=== PATIENT | male | born 1960 | race Caucasian/White ===

== ENCOUNTER → 2016-12-04 | Outpatient (CLI) | payer MEDICARE, OTHER ==
[2016-12-04 12:57] LABS: Hemoglobin A1C 7.9 % (4.2-6.1)
== END | disposition home or self-care (01) ==
LOC: LABWHC1 08:29
PROVIDERS: ATTEND Family Medicine
DX: R73.01 Impaired fasting glucose (principal)
CPT/HCPCS: 36415; 82947; 83036

== ENCOUNTER 2017-03-19 16:47 | Emergency (ER) | payer MEDICARE, OTHER ==
[2017-03-19 16:59] VITALS: RESP 18
[2017-03-19] MEDS ORDERED: IPRATROPIUM-ALBUTEROL 3 ML NEB INHALATION STA (17:23)
--- NOTE | 2017-03-19 17:28 | ED ---
URI HPI <SantosPop - Last Filed: 03/19/17 20:04> - General Source: patient, RN notes reviewed Mode of arrival: ambulatory Limitations: no limitations <Kaylin Becker - Last Filed: 03/20/17 02:07> - General Chief Complaint: Upper Respiratory Infection Stated Complaint: Cough,Congestion,Tired Time Seen by Provider: 03/19/17 17:09 - History of Present Illness Initial Comments: Patient is a 56-year-old male presents to the emergency room for evaluation of cough and congestion. Patient states symptoms began on . Patient states it started with a light cough and stuffy nose. Patient states he also has had all over body aches and has been unable to get out of bed from until Saturday. Patient states he is still continuing to have a productive cough. Patient smokes a half pack per day. Patient states his girlfriend was recently diagnosed with pneumonia. Patient states he did receive his influenza vaccine this year. Patient denies any known fevers. Patient denies headache or dizziness. Patient does state he is also feeling chest pressure and shortness of breath. Patient states he's having throat pain every time he coughs. Patient denies ear pain. Patient denies nausea and vomiting. Patient denies abdominal pain. (Kaylin Becker) - Related Data Home Medications Medication Instructions Recorded Confirmed Aspirin 325 mg PO DAILY 02/15/16 03/19/17 Atorvastatin [Lipitor] 80 mg PO HS 02/15/16 03/19/17 HYDROcodone/APAP 10-325MG [[place] 1 tab PO Q4HR PRN 02/15/16 03/19/17 10-325] Metoprolol Tartrate [Lopressor] 25 mg PO BID 02/15/16 03/19/17 Nitroglycerin Sl Tabs [Nitrostat] 0.4 mg SUBLINGUAL Q5M PRN 02/15/16 03/19/17 Omeprazole [PriLOSEC] 20 mg PO AC-BID 02/15/16 03/19/17 Lisinopril [Zestril] 40 mg PO DAILY 03/19/17 03/19/17 Previous Rx's Medication Instructions Recorded Levofloxacin [Levaquin] 500 mg PO DAILY #7 tab 03/19/17 Allergies Allergy/AdvReac Type Severity Reaction Status Date / Time Penicillins Allergy Rash/Hives Verified 03/19/17 17:30 Review of Systems ROS Other: All systems not noted in ROS Statement are negative. <Pop Graham - Last Filed: 03/19/17 20:04> ROS Other: All systems not noted in ROS Statement are negative. <Kaylin Becker - Last Filed: 03/20/17 02:07> ROS Statement: Those systems with pertinent positive or pertinent negative responses have been documented in the HPI. Past Medical History Past Medical History: Myocardial Infarction ([place]) History of Any Multi-Drug Resistant Organisms: None Reported Past Surgical History: Back Surgery, Heart Catheterization Additional Past Surgical History / Comment(s): Carpal Tunnel, Ulnar Nerve Past Psychological History: No Psychological Hx Reported Smoking Status: Current every day smoker Past Alcohol Use History: Rare Past Drug Use History: Marijuana <Kaylin Becker - Last Filed: 03/20/17 02:07> General Exam <Pop Graham - Last Filed: 03/19/17 20:04> Limitations: no limitations General appearance: alert, in no apparent distress Head exam: Present: atraumatic, normocephalic, normal inspection Eye exam: Present: normal appearance ENT exam: Present: normal exam, normal oropharynx, mucous membranes moist, TM's normal bilaterally, normal external ear exam Neck exam: Present: normal inspection, full ROM Respiratory exam: Present: normal lung sounds bilaterally. Absent: respiratory distress Cardiovascular Exam: Present: regular rate, normal rhythm, normal heart sounds Extremities exam: Present: normal inspection Back exam: Present: normal inspection Neurological exam: Present: alert, oriented X3, CN II-XII intact, normal gait Psychiatric exam: Present: normal affect, normal mood Skin exam: Present: warm, dry, intact, normal color. Absent: rash <Kaylin Becker - Last Filed: 03/20/17 02:07> - General Exam Comments Initial Comments: Sitting in exam room, in no acute distress. (Kaylin Becker) Medical Decision Making - Lab Data Result diagrams: 03/19/17 17:43 03/19/17 17:43 <Pop Graham - Last Filed: 03/19/17 20:04> - Lab Data Result diagrams: 03/19/17 17:43 03/19/17 17:43 - Radiology Data Radiology results: report reviewed, image reviewed <Kaylin Becker - Last Filed: 03/20/17 02:07> - Medical Decision Making The patient's significant other has pneumonia last week. He's developed productive cough and low-grade fever prior to coming to emergency room. It is somewhat productive. #3.3 chest x-rays negative. He is a heavy smoker we discussed bronchitis. The patient has no rashes no difficulty urinating. No sinus pain or pressures. Lungs are clear to auscultation except for coughing. At this time the patient be placed on Levaquin for 8 days 500 mg per day and follow-up with family physician stop smoking. Take Tylenol or ibuprofen for pain and/or fever. Return emergency room as needed. Dr. Graham (Pop Graham) - Lab Data Lab Results 03/19/17 03/19/17 03/19/17 Range/Units 17:15 17:43 17:43 WBC 3.5 L (3.8-10.6) k/uL RBC 4.78 (4.30-5.90) m/uL Hgb 13.9 (13.0-17.5) gm/dL Hct 39.5 (39.0-53.0) % MCV 82.6 (80.0-100.0) fL MCH 29.0 (25.0-35.0) pg MCHC 35.1 (31.0-37.0) g/dL RDW 13.8 (11.5-15.5) % Plt Count 125 L (150-450) k/uL Neutrophils % 47 % Lymphocytes % 42 % Monocytes % 6 % Eosinophils % 1 % Basophils % 1 % Neutrophils # 1.6 (1.3-7.7) k/uL Lymphocytes # 1.5 (1.0-4.8) k/uL Monocytes # 0.2 (0-1.0) k/uL Eosinophils # 0.1 (0-0.7) k/uL Basophils # 0.0 (0-0.2) k/uL PT (9.0-12.0) sec INR (<1.1) APTT (22.0-30.0) sec D-Dimer (<0.60) mg/L FEU Sodium (137-145) mmol/L Potassium (3.5-5.1) mmol/L Chloride (98-107) mmol/L Carbon Dioxide (22-30) mmol/L Anion Gap mmol/L BUN (9-20) mg/dL Creatinine (0.66-1.25) mg/dL Est GFR (MDRD) Af Amer (>60 ml/min/1.73 sqM) Est GFR (MDRD) Non-Af (>60 ml/min/1.73 sqM) Glucose (74-99) mg/dL Plasma Lactic Acid Lc (0.7-2.0) mmol/L Calcium (8.4-10.2) mg/dL Total Bilirubin (0.2-1.3) mg/dL AST (17-59) U/L ALT (21-72) U/L Alkaline Phosphatase (38-126) U/L Total Creatine Kinase 192 H (55-170) U/L CK-MB (CK-2) 2.1 (0.0-2.4) ng/mL CK-MB (CK-2) Rel Index 1.1 Troponin I <0.012 (0.000-0.034) ng/mL Total Protein (6.3-8.2) g/dL Albumin (3.5-5.0) g/dL Influenza Type A RNA Not Detected (Not Detectd) Influenza Type B (PCR) Not Detected (Not Detectd) 03/19/17 03/19/17 03/19/17 Range/Units 17:43 17:43 17:43 WBC (3.8-10.6) k/uL RBC (4.30-5.90) m/uL Hgb (13.0-17.5) gm/dL Hct (39.0-53.0) % MCV (80.0-100.0) fL MCH (25.0-35.0) pg MCHC (31.0-37.0) g/dL RDW (11.5-15.5) % Plt Count (150-450) k/uL Neutrophils % % Lymphocytes % % Monocytes % % Eosinophils % % Basophils % % Neutrophils # (1.3-7.7) k/uL Lymphocytes # (1.0-4.8) k/uL Monocytes # (0-1.0) k/uL Eosinophils # (0-0.7) k/uL Basophils # (0-0.2) k/uL PT 9.9 (9.0-12.0) sec INR 1.0 (<1.1) APTT 27.4 (22.0-30.0) sec D-Dimer 0.40 (<0.60) mg/L FEU Sodium 132 L (137-145) mmol/L Potassium 4.1 (3.5-5.1) mmol/L Chloride 99 (98-107) mmol/L Carbon Dioxide 22 (22-30) mmol/L Anion Gap 11 mmol/L BUN 15 (9-20) mg/dL Creatinine 0.81 (0.66-1.25) mg/dL Est GFR (MDRD) Af Amer >60 (>60 ml/min/1.73 sqM) Est GFR (MDRD) Non-Af >60 (>60 ml/min/1.73 sqM) Glucose 107 H (74-99) mg/dL Plasma Lactic Acid Lc 1.0 (0.7-2.0) mmol/L Calcium 8.8 (8.4-10.2) mg/dL Total Bilirubin 0.6 (0.2-1.3) mg/dL AST 40 (17-59) U/L ALT 50 (21-72) U/L Alkaline Phosphatase 61 (38-126) U/L Total Creatine Kinase (55-170) U/L CK-MB (CK-2) (0.0-2.4) ng/mL CK-MB (CK-2) Rel Index Troponin I (0.000-0.034) ng/mL Total Protein 6.6 (6.3-8.2) g/dL Albumin 4.1 (3.5-5.0) g/dL Influenza Type A RNA (Not Detectd) Influenza Type B (PCR) (Not Detectd) 03/20/17 02:06 Normal sinus rhythm, ventricular rate 82 bpm, DE interval 170 ms, QRS duration 86 ms, QT/QTC 388/453 ms (Kaylin Becker) Disposition <Pop Graham - Last Filed: 03/19/17 20:04> Time of Disposition: 19:28 <Kaylin Becker - Last Filed: 03/20/17 02:07> Clinical Impression: Bronchitis Disposition: HOME SELF-CARE Condition: Good Instructions: Acute Bronchitis (ED), How to Stop Smoking (ED) Additional Instructions: Take antibiotics as directed. Alternate Tylenol and Motrin for fever. Refrain from smoking. Please follow up with primary care provider in 24-48 hours for reevaluation. If any new symptom arises or symptoms worsen, return to ER as soon as possible. Prescriptions: Levofloxacin [Levaquin] 500 mg PO DAILY #7 tab Referrals: Nonstaff,Physician [Primary Care Provider] - 1-2 days
[2017-03-19] MEDS ORDERED: ACETAMINOPHEN TAB 500 MG TAB PO STA (18:02)
[2017-03-19 18:04] LABS: Basophils % (A) 1 %; CH 29.8; CHCM 36.2; Eosinophils # (A) 0.1 k/uL (0-0.7); Eosinophils % (A) 1 %; HCT 39.5 % (39.0-53.0); HDW 2.97; HGB 13.9 gm/dL (13.0-17.5); Luc # (Auto) 0.12; Luc % (Auto) 3; Lymphocytes # (A) 1.5 k/uL (1.0-4.8); Lymphocytes % (A) 42 %; MCHC 35.1 g/dL (31.0-37.0); MCV 82.6 fL (80.0-100.0); Mean Platelet Volume 7.5; Monocytes # (A) 0.2 k/uL (0-1.0); Monocytes % (A) 6 %; Neutrophils # (A) 1.6 k/uL (1.3-7.7); Neutrophils % (A) 47 %; RBC 4.78 m/uL (4.30-5.90); RDW 13.8 % (11.5-15.5); WBC 3.5 k/uL (3.8-10.6); WBC (Perox) 3.59
[2017-03-19 18:10] LABS: ALT 50 U/L (21-72); AST 40 U/L (17-59); Alkaline Phosphatase 61 U/L (38-126); Anion Gap 11 mmol/L; Blood Urea Nitrogen 15 mg/dL (9-20); Calcium 8.8 mg/dL (8.4-10.2); Carbon Dioxide 22 mmol/L (22-30); Chloride 99 mmol/L (98-107); Glucose 107 mg/dL (74-99); Non-African American GFR(MDRD) >60 (>60 ml/min/1.73 sqM); Potassium 4.1 mmol/L (3.5-5.1); Sodium 132 mmol/L (137-145); Total Bilirubin 0.6 mg/dL (0.2-1.3); Total Protein 6.6 g/dL (6.3-8.2)
--- NOTE | 2017-03-19 18:10 | XR ---
EXAMINATION TYPE: XR chest 2V DATE OF EXAM: 03/19/2017 5:53 PM COMPARISON: 06/26/2013 HISTORY: Cough and congestion TECHNIQUE: Frontal and lateral views of the chest are obtained. FINDINGS: There is no heart failure nor confluent pneumonic infiltrate. Heart is normal. There are n o hilar masses. Bony thorax appears intact. IMPRESSION: No active cardiopulmonary disease. No change.
[2017-03-19 18:15] LABS: Partial Thromboplastin Time 27.4 sec (22.0-30.0); Prothrombin Time 9.9 sec (9.0-12.0)
[2017-03-19 18:23] LABS: Creatine Kinase 192 U/L (55-170)
[2017-03-19 18:36] LABS: Creatine Kinase MB 2.1 ng/mL (0.0-2.4); Troponin I <0.012 ng/mL (0.000-0.034)
[2017-03-19] MEDS ORDERED: IBUPROFEN 600 MG TAB PO STA (19:27)
[2017-03-19 20:16] VITALS: BP 145/68; PULSE 78; TEMP 97.5
== END 2017-03-19 20:05 | disposition home or self-care (01) ==
LOC: EC 16:47
DX: J40 Bronchitis, not specified as acute or chronic (principal); I25.2 Old myocardial infarction; F17.200 Nicotine dependence, unspecified, uncomplicated; Z79.82 Long term (current) use of aspirin; Z79.899 Other long term (current) drug therapy; Z88.0 Allergy status to penicillin
CPT/HCPCS: 36415; 71020; 80053; 82550; 82553; 83605; 84484; 85025; 85379; 85610; 85730; 87040; 87502; 93005; 94640; 99284

== ENCOUNTER 2017-03-27 12:16 | Emergency (ER) | payer MEDICARE, OTHER ==
[2017-03-27 12:20] VITALS: BP 135/69; PULSE 69; RESP 18; TEMP 98.3
--- NOTE | 2017-03-27 12:39 | ED ---
URI HPI - General Chief Complaint: Upper Respiratory Infection Stated Complaint: Cough Time Seen by Provider: 03/27/17 12:21 Source: patient, RN notes reviewed, old records reviewed Mode of arrival: ambulatory Limitations: no limitations - History of Present Illness Initial Comments: Patient reaching plan will comply. Return parameters were discussed. Patient is a 56-year-old male with chief complaint of increased cough for the past day and half. Patient reports he was placed on Levaquin [place] only one week ago. One day after antibiotic is certainly have the cough began. Patient denies any fever or chills or respiratory congestion. He denies any chest pain. He states that he is short of breath when he is coughing a lot. Patient states he is a heavy smoker. He does not intend to quit.Patient's chest x-ray shows mild atelectasis. No evidence of infiltrate. Given patient recently completed antibiotics but no steroids and he has assumed started on steroids for COPD exacerbation. Patient be started on 50 mg for 7 days. Given Solu-Medrol here. Patient will be written for cough syrup as well as albuterol inhaler. Encourage cessation of smoking. Patient advised to follow up with primary care provider as soon as possible. - Related Data Home Medications Medication Instructions Recorded Confirmed Aspirin 325 mg PO DAILY 02/15/16 03/19/17 Atorvastatin [Lipitor] 80 mg PO HS 02/15/16 03/19/17 HYDROcodone/APAP 10-325MG [[place] 1 tab PO Q4HR PRN 02/15/16 03/19/17 10-325] Metoprolol Tartrate [Lopressor] 25 mg PO BID 02/15/16 03/19/17 Nitroglycerin Sl Tabs [Nitrostat] 0.4 mg SUBLINGUAL Q5M PRN 02/15/16 03/19/17 Omeprazole [PriLOSEC] 20 mg PO AC-BID 02/15/16 03/19/17 Lisinopril [Zestril] 40 mg PO DAILY 03/19/17 03/19/17 Previous Rx's Medication Instructions Recorded Levofloxacin [Levaquin] 500 mg PO DAILY #7 tab 03/19/17 Albuterol Inhaler [Ventolin Hfa 1 - 2 puff INHALATION Q6HR PRN #1 03/27/17 Inhaler] inhaler Promethazine/Dextromethorphan 5 ml PO TID #120 ml 03/27/17 [Phenergan DM Syrup] predniSONE 50 mg PO DAILY #7 tab 03/27/17 Allergies Allergy/AdvReac Type Severity Reaction Status Date / Time Penicillins Allergy Rash/Hives Verified 03/27/17 12:20 Review of Systems ROS Statement: Those systems with pertinent positive or pertinent negative responses have been documented in the HPI. ROS Other: All systems not noted in ROS Statement are negative. Past Medical History Past Medical History: Myocardial Infarction ([place]) History of Any Multi-Drug Resistant Organisms: None Reported Past Surgical History: Back Surgery, Heart Catheterization Additional Past Surgical History / Comment(s): Carpal Tunnel, Ulnar Nerve Past Psychological History: No Psychological Hx Reported Smoking Status: Current every day smoker Past Alcohol Use History: Rare Past Drug Use History: Marijuana General Exam - General Exam Comments Initial Comments: 56-year-old male. Patient is on appear to be in any acute distress. Limitations: no limitations General appearance: alert, in no apparent distress Head exam: Present: atraumatic, normocephalic, normal inspection Eye exam: Present: normal appearance, PERRL, EOMI. Absent: scleral icterus, conjunctival injection, periorbital swelling ENT exam: Present: normal exam, mucous membranes moist Neck exam: Present: normal inspection. Absent: tenderness, meningismus, lymphadenopathy Respiratory exam: Present: normal lung sounds bilaterally. Absent: respiratory distress, wheezes, rales, rhonchi, stridor Cardiovascular Exam: Present: regular rate, normal rhythm, normal heart sounds. Absent: systolic murmur, diastolic murmur, rubs, gallop, clicks GI/Abdominal exam: Present: soft, normal bowel sounds. Absent: distended, tenderness, guarding, rebound, rigid Extremities exam: Present: normal inspection Back exam: Present: normal inspection Neurological exam: Present: alert, oriented X3, CN II-XII intact Psychiatric exam: Present: normal affect Skin exam: Present: warm, dry, intact, normal color. Absent: rash Course Vital Signs 03/27/17 12:18 Temperature 98.3 F Pulse Rate 69 Respiratory 18 Rate Blood Pressure 135/69 O2 Sat by Pulse 96 Oximetry Medical Decision Making - Radiology Data Radiology results: report reviewed Right perihilar patchy subsegmental consolidation. Atelectasis versus infiltrate. Follow-up for resolution. Hyperinflation suggest COPD. Degenerative spine changes noted. Surgical change noted involving the lumbar spine. Disposition Clinical Impression: COPD exacerbation Disposition: HOME SELF-CARE Condition: Good Instructions: COPD (Chronic Obstructive Pulmonary Disease) (ED) Additional Instructions: Patient advised to stop smoking. Follow-up with primary care provider as soon as possible reports to smoking cessation as well as cough. Prescriptions: Albuterol Inhaler [Ventolin Hfa Inhaler] 1 - 2 puff INHALATION Q6HR PRN #1 inhaler PRN Reason: Shortness Of Breath Promethazine/Dextromethorphan [Phenergan DM Syrup] 5 ml PO TID #120 ml predniSONE 50 mg PO DAILY #7 tab Referrals: Narayan Bill DO [Primary Care Provider] - 1-2 days Time of Disposition: 12:59
--- NOTE | 2017-03-27 12:51 | XR ---
EXAMINATION TYPE: XR chest 2V DATE OF EXAM: 03/27/2017 12:46 PM COMPARISON: 03/19/2017 TECHNIQUE: PA and lateral views submitted. HISTORY: Cough FINDINGS: The lungs are clear and there is no pneumothorax, pleural effusion, or focal pneumonia. Hyperinflati on suggests COPD. Degenerative changes spine noted. Surgical change noted involving the lumbar spine. Patchy perihilar subsegmental consolidation at the right. IMPRESSION: 1. Right perihilar patchy subsegmental consolidation. Atelectasis versus infiltrate. Follow-up to res olution.
[2017-03-27] MEDS ORDERED: methylPREDNISolone SOD SUCCI 125 MG/2 ML VIAL IM ONE (13:02)
== END 2017-03-27 13:26 | disposition home or self-care (01) ==
LOC: EC 12:16
DX: J44.1 Chronic obstructive pulmonary disease with (acute) exacerbation (principal); I25.2 Old myocardial infarction; F17.200 Nicotine dependence, unspecified, uncomplicated; Z79.82 Long term (current) use of aspirin; Z79.899 Other long term (current) drug therapy; Z88.0 Allergy status to penicillin
CPT/HCPCS: 71020; 99283; 96372; J2930

== ENCOUNTER → 2017-04-15 | Outpatient (CLI) | payer MEDICARE, OTHER ==
--- NOTE | 2017-04-15 09:42 | XR ---
EXAMINATION TYPE: XR chest 2V DATE OF EXAM: 04/15/2017 9:35 AM COMPARISON: 03/27/2017 TECHNIQUE: PA and lateral views submitted. HISTORY: Pain FINDINGS: The lungs are clear and there is no pneumothorax, pleural effusion, or focal pneumonia. Hypertrophi c and degenerative change spine. IMPRESSION: 1. No acute process.
== END | disposition home or self-care (01) ==
LOC: RADXRMAIN 09:21
PROVIDERS: ATTEND Family Medicine
DX: J98.4 Other disorders of lung (principal)
CPT/HCPCS: 71020

== ENCOUNTER → 2017-06-05 | Outpatient (CLI) | payer MEDICARE, OTHER ==
[2017-06-05 07:54] LABS: Basophils # (A) 0.1 k/uL (0-0.2); Basophils % (A) 1 %; CH 29.1; CHCM 36.1; Eosinophils # (A) 0.2 k/uL (0-0.7); Eosinophils % (A) 2 %; HCT 39.2 % (39.0-53.0); HDW 2.86; HGB 14.3 gm/dL (13.0-17.5); Luc # (Auto) 0.22; Luc % (Auto) 2; Lymphocytes # (A) 3.2 k/uL (1.0-4.8); Lymphocytes % (A) 31 %; MCH 29.5 pg (25.0-35.0); MCHC 36.5 g/dL (31.0-37.0); Mean Platelet Volume 7.5; Monocytes # (A) 0.6 k/uL (0-1.0); Monocytes % (A) 5 %; Neutrophils % (A) 58 %; RBC 4.85 m/uL (4.30-5.90); RDW 14.2 % (11.5-15.5); WBC 10.2 k/uL (3.8-10.6); WBC (Perox) 9.88
[2017-06-05 09:12] LABS: Hemoglobin A1C 7.7 % (4.2-6.1)
[2017-06-05 12:32] LABS: ALT 41 U/L (21-72); AST 25 U/L (17-59); Alkaline Phosphatase 64 U/L (38-126); Anion Gap 9 mmol/L; Blood Urea Nitrogen 10 mg/dL (9-20); Calcium 9.4 mg/dL (8.4-10.2); Carbon Dioxide 26 mmol/L (22-30); Chloride 102 mmol/L (98-107); Cholesterol 103 mg/dL (<200); Creatine Kinase 146 U/L (55-170); Glucose 157 mg/dL (74-99); HDL Cholesterol 24 mg/dL (40-60); Non-African American GFR(MDRD) >60 (>60 ml/min/1.73 sqM); Potassium 4.5 mmol/L (3.5-5.1); Sodium 137 mmol/L (137-145); Total Bilirubin 0.6 mg/dL (0.2-1.3); Total Protein 6.6 g/dL (6.3-8.2); Triglycerides 204 mg/dL (<150)
[2017-06-05 15:00] LABS: Prostate Specific Antigen 1.02 ng/mL (0.00-4.00)
== END | disposition home or self-care (01) ==
LOC: LABWHC1 06:50
PROVIDERS: ATTEND Family Medicine
DX: E78.5 Hyperlipidemia, unspecified (principal); I10 Essential (primary) hypertension; E11.9 Type 2 diabetes mellitus without complications; N40.1 Benign prostatic hyperplasia with lower urinary tract symptoms; D69.6 Thrombocytopenia, unspecified; R63.5 Abnormal weight gain
CPT/HCPCS: 36415; 80053; 80061; 82550; 83036; 84153; 85025

== ENCOUNTER → 2017-12-14 | Outpatient (CLI) | payer MEDICARE, OTHER ==
[2017-12-14 10:13] LABS: HCT 41.6 % (39.0-53.0); HGB 13.8 gm/dL (13.0-17.5); MCH 27.8 pg (25.0-35.0); MCHC 33.2 g/dL (31.0-37.0); MCV 83.8 fL (80.0-100.0); Mean Platelet Volume 7.9; Platelet Count 183 k/uL (150-450); RBC 4.97 m/uL (4.30-5.90); RDW 14.3 % (11.5-15.5); WBC 6.6 k/uL (3.8-10.6)
[2017-12-14 10:31] LABS: Anion Gap 12 mmol/L; Blood Urea Nitrogen 11 mg/dL (9-20); Carbon Dioxide 25 mmol/L (22-30); Chloride 99 mmol/L (98-107); Potassium 4.6 mmol/L (3.5-5.1); Sodium 136 mmol/L (137-145)
== END | disposition home or self-care (01) ==
LOC: LABPAT 09:20
PROVIDERS: ATTEND Internal Medicine Interventional Cardiology
DX: Z01.812 Encounter for preprocedural laboratory examination (principal); I25.10 Atherosclerotic heart disease of native coronary artery without angina pectoris
CPT/HCPCS: 36415; 80051; 82565; 84520; 85027

== ENCOUNTER 2017-12-17 06:34 | Day surgery (SDC) | payer MEDICARE ==
[2017-12-11 14:56] VITALS: BMI 28.2
[~2017-12-17 06:34] MED LIST: ALPRAZolam 0.25 MG TAB PO PRN; ALPRAZolam 0.5 MG TAB PO PRN; ASPIRIN 325 MG TAB PO STA; ATORVASTATIN 80 MG TAB PO STA; NITROGLYCERIN SL TABS 0.4 MG TAB SUBLINGUAL PRN; SODIUM CHLORIDE 0.9% 1,000 ML in EMPTY BAG 1 BAG IV ONE
[2017-12-17] MEDS: INSULIN ASPART 100 UNIT/ML 1 ML 10 ML VIAL SQ SCH ×4 (07:09→21:57)
[2017-12-17 07:13] LABS: Glucose,Whole Blood 222 mg/dL (75-99)
[2017-12-17] MEDS ORDERED: fentaNYL (PF) 50 MCG/ML 2 ML AMP ONE (07:37)
[2017-12-17] MEDS ORDERED: MIDAZOLAM 2 MG/2 ML VIAL ONE ×2 (07:37→08:28)
[2017-12-17] MEDS ORDERED: HEPARIN SODIUM 1,000 UN/ML (10ML VL) ONE ×2 (07:38→08:28)
[2017-12-17] MEDS ORDERED: LIDOCAINE 2% INJ 20 MG/ML SQ ONE (07:52)
[2017-12-17] MEDS ORDERED: fentaNYL (PF) 50 MCG/ML 2 ML AMP IV ONE (07:53)
[2017-12-17] MEDS ORDERED: MIDAZOLAM 2 MG/2 ML VIAL IV ONE (07:54)
[2017-12-17] MEDS: HYDROmorphone 2 MG/ML 1 ML SYRINGE IV ONE ×2 (08:01→08:38)
[2017-12-17] MEDS ORDERED: HEPARIN SODIUM 1,000 UN/ML (10ML VL) IV ONE ×2 (08:01→08:30)
[2017-12-17] MEDS ORDERED: VERAPAMIL SYRINGE (5 MG/10 ML) INTRAARTER ONE (08:02)
[2017-12-17] MEDS ORDERED: HYDROmorphone 2 MG/ML 1 ML SYRINGE ONE (08:02)
[2017-12-17] MEDS ORDERED: MIDAZOLAM 2 MG/2 ML VIAL IVP ONE (08:29)
[2017-12-17] MEDS ORDERED: ADENOSINE 90 MG in SODIUM CHLORIDE 0.9% 60 ML IVP ONE (08:40)
[2017-12-17] MEDS ORDERED: IOHEXOL 350 MG/ML 125ML BOTTLE INJ ONE (08:55)
[2017-12-17] MEDS ORDERED: CLOPIDOGREL 75 MG TAB ONE (08:56)
[2017-12-17] MEDS ORDERED: MAG HYDROX/AL HYDROX/SIMETH 30 ML CUP PO PRN (09:01)
[2017-12-17] MEDS ORDERED: NITROGLYCERIN SL TABS 0.4 MG TAB SUBLINGUAL PRN ×2 (09:01→09:02)
[2017-12-17] MEDS ORDERED: RX INFO: IV CONTRAST WAS GIVEN 1 EACH MISC MISCELLANE PRN (09:01)
[2017-12-17] MEDS ORDERED: ZOLPIDEM 5 MG TAB PO PRN (09:01)
[2017-12-17] MEDS ORDERED: ATROPINE SULFATE 0.1 MG/ML 10ML SYRINGE IV PRN (09:01)
[2017-12-17] MEDS ORDERED: CLOPIDOGREL 75 MG TAB PO ONE (09:01)
[2017-12-17] MEDS ORDERED: SODIUM CHLORIDE 0.9% 1,000 ML IV SCH (09:15)
[2017-12-17] MEDS: HYDROcodone/APAP 10-325MG 1 EACH TAB PO PRN ×3 (12:12→20:51)
[2017-12-17 12:16] LABS: Glucose,Whole Blood 282 mg/dL (75-99)
[2017-12-17 17:04] LABS: Glucose,Whole Blood 304 mg/dL (75-99)
[2017-12-17] MEDS ORDERED: PANTOPRAZOLE 40 MG TABLET PO SCH (17:30)
[2017-12-17] MEDS: METOPROLOL TARTRATE 25 MG TAB PO SCH (19:17)
[2017-12-17] MEDS ORDERED: ATORVASTATIN 80 MG TAB PO SCH (21:00)
[2017-12-17 21:40] LABS: Glucose,Whole Blood 311 mg/dL (75-99)
--- NOTE | 2017-12-17 23:06 | CC ---
CARDIAC CATHETERIZATION REPORT DATE OF SERVICE: 12/17/2017 PERFORMING PHYSICIAN: Adrien Hart MD, medical reception. PROCEDURES PERFORMED: 1. Selective right and left coronary angiogram. 2. Left heart catheterization. 3. Left ventriculography. 4. Fractional flow reserve (FFR) of the left anterior descending artery. 5. Successful stenting of the mid left anterior descending artery using a 2.75 x 18 mm Xience drug-eluting stent, with good angiographic results. INDICATION: This is a pleasant 57-year-old gentleman with a known history of coronary artery disease and prior stenting of the left circumflex who was experiencing chest discomfort and underwent a stress test that revealed an apical ischemia. In view of that, a heart catheterization was recommended. APPROACH: Right radial artery. COMPLICATIONS: None. LEVEL OF SEDATION: Moderate with sedation length of about 59 minutes. PROCEDURE DESCRIPTION: After obtaining informed consent, the patient was brought to the cardiac laboratory immunologist. The right radial artery was cannulated using micropuncture technique. The micropuncture wire passed easily. Then I placed a 6-M[place]gasque sheath in the right radial artery. After that I gave the patient 2 mg of verapamil IA and 10,000 units of heparin IV with continuous monitoring of the ACT throughout the procedure. After that I did selective right and left coronary angiogram using JR4 and JL3.5 catheter. After that I did left heart catheterization using a 6-Monegasque pigtail catheter. After that I did fractional flow reserve (FFR) of the LAD. Please see a separate paragraph for that. Then I did intervene on the LAD as well. The procedure was completed without any complication. SELECTIVE CORONARY ANGIOGRAM: 1. The right coronary artery is a large-caliber vessel and it is a dominant vessel. The RCA appears to have mild disease only. Distally it bifurcates into PDA and PLV branches; both appear to have mild disease only. 2. The left main is a short left main but is angiographically normal. It bifurcates into the left circumflex and left anterior descending artery. 3. The left circumflex is a large-caliber vessel and it is a nondominant vessel. The proximal left circumflex appeared to have mild disease only. The mid left circumflex is stented and the stent is patent. The mid left circumflex gives rise to an OM branch which appeared to have mild disease only. The left circumflex distally appeared to have mild to moderate disease only. 4. The left anterior descending artery. The proximal LAD appeared to have mild disease only. The mid LAD appeared to have a long tubular lesion in the range of 60% to 70% and I did an FFR on it and that came in to be ischemic. The LAD distally appeared to be angiographically normal. The LAD proximally gives rise to a medium- sized diagonal branch which appeared to be angiographically normal. 5. HEMODYNAMICS: The left ventricular end-diastolic pressure was about 8 mmHg and no gradient was identified across the aortic valve. LEFT VENTRICULOGRAPHY: Left ventriculography was performed in the KEYES projection and using a power injection. The left ventricular systolic function appeared to be at the low normal of limits with an ejection fraction of 50%. FFR OF THE LAD AND PCI OF THE LAD: Anticoagulation was initiated using heparin. The patient was given 10,000 units of heparin at the beginning of the procedure and additional 3000 units during the procedure. Subsequently, after zeroing the Doppler wire and equalizing between the Doppler wire and the guiding catheter, which was JL3.5 guiding catheter, we did an FFR per IV adenosine infusion, and the FFR came in to be ischemic below 0.80. At that point I decided to pursue intervention on the LAD. I did wire the LAD using a Whisper wire in addition to a Doppler wire. After that I did balloon angioplasty using a 2.5 x 15 mm balloon. After that I deployed a 2.75 x 18 mm Xience drug-eluting stent where the stent was positioned under fluoroscopy guidance and deployed under 12 atmospheres for 20 seconds. The following angiogram showed good angiographic results. The procedure was completed without any complication. CONCLUSION: 1. Patent stent in the left circumflex coronary artery. 2. Severe disease involving the mid LAD. 3. Successful stenting of the mid LAD using a 2.75 x 18 mm Xience KARISSA with good angiographic results. POST-PROCEDURE MANAGEMENT: 1. Dual anti-platelet therapy. 2. Risk factor modifications. 3. Follow up with the patient. MMODL / IJN: [id number] /
[2017-12-18] MEDS: HYDROcodone/APAP 10-325MG 1 EACH TAB PO PRN ×2 (04:00→08:00)
[2017-12-18 05:58] LABS: Basophils % (A) 1 %; Eosinophils # (A) 0.2 k/uL (0-0.7); Eosinophils % (A) 3 %; HCT 36.2 % (39.0-53.0); Lymphocytes % (A) 20 %; MCH 27.5 pg (25.0-35.0); MCHC 33.1 g/dL (31.0-37.0); MCV 83.1 fL (80.0-100.0); Mean Platelet Volume 6.9; Monocytes # (A) 0.4 k/uL (0-1.0); Monocytes % (A) 8 %; Neutrophils # (A) 3.3 k/uL (1.3-7.7); Neutrophils % (A) 66 %; Platelet Count 149 k/uL (150-450); RBC 4.36 m/uL (4.30-5.90); RDW 13.3 % (11.5-15.5)
[2017-12-18 06:08] LABS: Anion Gap 9 mmol/L; Blood Urea Nitrogen 11 mg/dL (9-20); Calcium 8.9 mg/dL (8.4-10.2); Carbon Dioxide 24 mmol/L (22-30); Chloride 103 mmol/L (98-107); Glucose 210 mg/dL (74-99); Potassium 4.4 mmol/L (3.5-5.1); Sodium 136 mmol/L (137-145)
[2017-12-18 06:26] LABS: Glucose,Whole Blood 206 mg/dL (75-99)
[2017-12-18] MEDS: INSULIN ASPART 100 UNIT/ML 1 ML 10 ML VIAL SQ SCH (06:32)
[2017-12-18] MEDS: METOPROLOL TARTRATE 25 MG TAB PO SCH (07:27)
[2017-12-18] MEDS ORDERED: OMEPRAZOLE 20MG CAP PO SCH (07:30)
[2017-12-18] MEDS ORDERED: LISINOPRIL 20 MG TAB PO SCH (09:00)
[2017-12-18] MEDS ORDERED: ASPIRIN 325 MG TAB PO SCH ×2 (09:00)
[2017-12-18] MEDS ORDERED: CLOPIDOGREL 75 MG TAB PO SCH (09:00)
[2017-12-18 09:12] VITALS: PULSE 78
[2017-12-18 09:13] VITALS: BP 117/69; RESP 16; TEMP 98.2
--- NOTE | 2017-12-18 10:58 | DS ---
DISCHARGE SUMMARY DATE OF ADMISSION: 12/17/2017. DATE OF DISCHARGE: 12/18/2017. BRIEF HISTORY: This is a pleasant 57-year-old male patient who is known to have coronary artery disease and prior stenting of the left circumflex was experiencing atypical chest discomfort and he underwent a myocardial perfusion imaging stress test and that revealed ischemia in the apex. He underwent a heart catheterization yesterday and that showed intermediate to severe disease of the mid LAD. Subsequently the patient underwent a fractional flow reserve of the LAD which came in to be ischemic below 0.80. The patient after that underwent successful stenting of the mid LAD with good angiographic results and without any complication with the procedure was performed from the right radial artery. The patient is going to be discharged home on dual anti-platelet therapy and statin and I will follow up with the patient in the office in a week. GUS / AIDAN: [id number] /
== END 2017-12-18 10:45 | disposition home or self-care (01) ==
LOC: CATHCVL 06:34 → 6SEL 08:56 → CATHCVL 12-18 10:45
PROVIDERS: ATTEND Internal Medicine Interventional Cardiology
DX: I25.110 Atherosclerotic heart disease of native coronary artery with unstable angina pectoris (principal); I10 Essential (primary) hypertension; F17.210 Nicotine dependence, cigarettes, uncomplicated; E78.5 Hyperlipidemia, unspecified; Z95.5 Presence of coronary angioplasty implant and graft; E11.9 Type 2 diabetes mellitus without complications; Z79.84 Long term (current) use of oral hypoglycemic drugs; Z79.82 Long term (current) use of aspirin; Z79.899 Other long term (current) drug therapy; Z88.0 Allergy status to penicillin
CPT/HCPCS: 94760; 93571; 93458; 80048; 85025; C9600; C1769; C1887; C1725; C1874; C1894; J2001; J2250; J1170; J3010; J1644; J0153; Q9967

== ENCOUNTER → 2018-01-14 | Outpatient (CLI) | payer MEDICARE ==
--- NOTE | 2018-01-14 12:54 | XR ---
Right elbow HISTORY: Chronic pain 3 views of the right elbow There may be some loss of joint spaces medially and laterally, bone mineralization, alignment are rebeca ntained. Mild marginal spurring suspected at the medial aspect of the joint, anterior aspect of the j oint. No definite joint effusion. Spurring also noted at the radial head anteriorly. IMPRESSION: Osteoarthritic change.
== END | disposition home or self-care (01) ==
LOC: RADXRMAIN 10:17
PROVIDERS: ATTEND Internal Medicine
DX: M19.021 Primary osteoarthritis, right elbow (principal)

== ENCOUNTER 2018-04-02 09:41 | Emergency (ER) | payer MEDICARE, OTHER ==
[2018-04-02 09:51] VITALS: RESP 18
[2018-04-02] MEDS ORDERED: MORPHINE SULFATE 4 MG/ML SYRINGE IV STA (10:15)
[2018-04-02] MEDS ORDERED: RX INFO: IV CONTRAST WAS GIVEN 1 EACH MISC MISCELLANE PRN (10:29)
--- NOTE | 2018-04-02 10:37 | ED ---
General Adult HPI - General Chief complaint: Chest Pain Stated complaint: Back Pain Time Seen by Provider: 04/02/18 10:08 Source: patient, RN notes reviewed Mode of arrival: ambulatory Limitations: no limitations - History of Present Illness Initial comments: 57-year-old male presents with back pain and chest pain. Patient's symptoms began 2 days ago while at rest. Reports anterior chest pain which is tender to palpation and patient has noted a abnormal lump in his chest as well as back pain which is mid thoracic more to the right. Describes the pain as sharp and severe in nature. His been constant for the past several days. Now worse with inspiration. Patient denies significant cough, he does have baseline cough secondary to COPD and tobacco exposure. History of CAD status post multiple stents. No injury reported. No central substernal chest pain or epigastric pain. No pain in his arms. No numbness or tingling. - Related Data Home Medications Medication Instructions Recorded Confirmed Aspirin 325 mg PO DAILY 02/15/16 04/02/18 Atorvastatin [Lipitor] 80 mg PO HS 02/15/16 04/02/18 HYDROcodone/APAP 10-325MG [[place] 1 tab PO Q4HR PRN 02/15/16 04/02/18 10-325] Metoprolol Tartrate [Lopressor] 25 mg PO BID 02/15/16 04/02/18 Nitroglycerin Sl Tabs [Nitrostat] 0.4 mg SUBLINGUAL Q5M PRN 02/15/16 04/02/18 Omeprazole [PriLOSEC] 20 mg PO BID 02/15/16 04/02/18 Lisinopril [Zestril] 40 mg PO DAILY 03/19/17 04/02/18 Cyclobenzaprine [Flexeril] 10 mg PO HS 04/02/18 04/02/18 metFORMIN HCL ER [Glucophage Xr] 500 mg PO BID 04/02/18 04/02/18 Previous Rx's Medication Instructions Recorded Clopidogrel [Plavix] 75 mg PO DAILY #90 tab 12/18/17 Allergies Allergy/AdvReac Type Severity Reaction Status Date / Time Penicillins Allergy Rash/Hives Verified 04/02/18 10:37 Review of Systems ROS Statement: Those systems with pertinent positive or pertinent negative responses have been documented in the HPI. ROS Other: All systems not noted in ROS Statement are negative. Past Medical History Past Medical History: Diabetes Mellitus, GERD/Reflux, Hyperlipidemia, Hypertension, Myocardial Infarction (PR) Additional Past Medical History / Comment(s): 06/2013 Last Myocardial Infarction Date:: 06/2013 History of Any Multi-Drug Resistant Organisms: None Reported Past Surgical History: Back Surgery, Heart Catheterization, Heart Catheterization With Stent Additional Past Surgical History / Comment(s): Carpal Tunnel, Ulnar Nerve, dental Past Anesthesia/Blood Transfusion Reactions: No Reported Reaction Additional Past Anesthesia/Blood Transfusion Reaction / Comment(s): woke up during sugery x2 Date of Last Stent Placement:: 2017 Past Psychological History: Anxiety Smoking Status: Former smoker Past Alcohol Use History: None Reported Past Drug Use History: None Reported - Past Family History Brother(s) Family Medical History: Cancer Additional Family Medical History / Comment(s): brain Mother Family Medical History: Diabetes Mellitus General Exam Limitations: no limitations General appearance: alert, in no apparent distress Head exam: Present: atraumatic, normocephalic Eye exam: Present: normal appearance, PERRL ENT exam: Present: normal exam Neck exam: Present: normal inspection. Absent: tenderness, meningismus Respiratory exam: Present: normal lung sounds bilaterally, chest wall tenderness. Absent: respiratory distress, wheezes, rales Cardiovascular Exam: Present: regular rate, normal rhythm GI/Abdominal exam: Present: soft. Absent: distended, tenderness Extremities exam: Present: normal inspection, normal capillary refill. Absent: pedal edema Back exam: Present: normal inspection. Absent: tenderness Neurological exam: Present: alert, oriented X3, CN II-XII intact. Absent: motor sensory deficit Psychiatric exam: Present: normal affect, normal mood Skin exam: Present: warm, dry, intact. Absent: cyanosis, diaphoretic Course Vital Signs 04/02/18 04/02/18 09:46 12:24 Temperature 98.2 F Pulse Rate 60 72 Respiratory 18 18 Rate Blood Pressure 134/77 139/79 O2 Sat by Pulse 99 Oximetry EKG Findings - EKG Comments: EKG Findings:: EKG sinus bradycardia: Rate of 57, NC interval 180, QRS duration 92, QTC 422, no T-wave inversion. No ST segment elevation Medical Decision Making - Medical Decision Making 57-year-old male presenting with chest pain and back pain. Patient does have significant tobacco history as well as hypertension. CT was obtained for concerns dissection, this is negative. There is some reproducible pain on the anterior chest wall, there is no bony abnormality seen on chest x-ray or CT. Laboratory studies including CBC, CMP, and troponin are negative. EKG nonischemic. Pain has been present for the past 2 days and troponin is negative this is reassuring that this is not cardiac in nature. Patient will continue [place] at home. He will follow-up with his primary care physician regarding this reproducible - Lab Data Result diagrams: 04/02/18 11:13 04/02/18 11:13 Lab Results 04/02/18 04/02/18 04/02/18 Range/Units 11:13 11:13 11:13 WBC 8.3 (3.8-10.6) k/uL RBC 5.24 (4.30-5.90) m/uL Hgb 14.2 (13.0-17.5) gm/dL Hct 40.5 (39.0-53.0) % MCV 77.3 L (80.0-100.0) fL MCH 27.1 (25.0-35.0) pg MCHC 35.1 (31.0-37.0) g/dL RDW 13.3 (11.5-15.5) % Plt Count 224 (150-450) k/uL Neutrophils % 62 % Lymphocytes % 27 % Monocytes % 7 % Eosinophils % 2 % Basophils % 1 % Neutrophils # 5.1 (1.3-7.7) k/uL Lymphocytes # 2.2 (1.0-4.8) k/uL Monocytes # 0.5 (0-1.0) k/uL Eosinophils # 0.1 (0-0.7) k/uL Basophils # 0.1 (0-0.2) k/uL PT (9.0-12.0) sec INR (<1.2) APTT (22.0-30.0) sec Sodium 136 L (137-145) mmol/L Potassium 4.3 (3.5-5.1) mmol/L Chloride 99 (98-107) mmol/L Carbon Dioxide 22 (22-30) mmol/L Anion Gap 15 mmol/L BUN 11 (9-20) mg/dL Creatinine 0.58 L (0.66-1.25) mg/dL Est GFR (CKD-EPI)AfAm >90 (>60 ml/min/1.73 sqM) Est GFR (CKD-EPI)NonAf >90 (>60 ml/min/1.73 sqM) Glucose 210 H (74-99) mg/dL Calcium 9.4 (8.4-10.2) mg/dL Magnesium 2.0 (1.6-2.3) mg/dL Total Bilirubin 0.6 (0.2-1.3) mg/dL AST 22 (17-59) U/L ALT 41 (21-72) U/L Alkaline Phosphatase 79 (38-126) U/L Total Creatine Kinase 111 (55-170) U/L CK-MB (CK-2) 1.8 (0.0-2.4) ng/mL CK-MB (CK-2) Rel Index 1.6 Troponin I <0.012 (0.000-0.034) ng/mL Total Protein 6.6 (6.3-8.2) g/dL Albumin 4.6 (3.5-5.0) g/dL 04/02/18 Range/Units 11:13 WBC (3.8-10.6) k/uL RBC (4.30-5.90) m/uL Hgb (13.0-17.5) gm/dL Hct (39.0-53.0) % MCV (80.0-100.0) fL MCH (25.0-35.0) pg MCHC (31.0-37.0) g/dL RDW (11.5-15.5) % Plt Count (150-450) k/uL Neutrophils % % Lymphocytes % % Monocytes % % Eosinophils % % Basophils % % Neutrophils # (1.3-7.7) k/uL Lymphocytes # (1.0-4.8) k/uL Monocytes # (0-1.0) k/uL Eosinophils # (0-0.7) k/uL Basophils # (0-0.2) k/uL PT 10.3 (9.0-12.0) sec INR 1.1 (<1.2) APTT 23.9 (22.0-30.0) sec Sodium (137-145) mmol/L Potassium (3.5-5.1) mmol/L Chloride (98-107) mmol/L Carbon Dioxide (22-30) mmol/L Anion Gap mmol/L BUN (9-20) mg/dL Creatinine (0.66-1.25) mg/dL Est GFR (CKD-EPI)AfAm (>60 ml/min/1.73 sqM) Est GFR (CKD-EPI)NonAf (>60 ml/min/1.73 sqM) Glucose (74-99) mg/dL Calcium (8.4-10.2) mg/dL Magnesium (1.6-2.3) mg/dL Total Bilirubin (0.2-1.3) mg/dL AST (17-59) U/L ALT (21-72) U/L Alkaline Phosphatase (38-126) U/L Total Creatine Kinase (55-170) U/L CK-MB (CK-2) (0.0-2.4) ng/mL CK-MB (CK-2) Rel Index Troponin I (0.000-0.034) ng/mL Total Protein (6.3-8.2) g/dL Albumin (3.5-5.0) g/dL Disposition Clinical Impression: Chest pain, Costalchondritis Disposition: HOME SELF-CARE Condition: Good Instructions: Chest Pain (ED), Costochondritis (ED) Is patient prescribed a controlled substance at d/c from ED?: No Referrals: René Rasmussen DO [Primary Care Provider] - 1-2 days Time of Disposition: 12:54
[2018-04-02 11:29] LABS: Basophils # (A) 0.1 k/uL (0-0.2); Basophils % (A) 1 %; Eosinophils # (A) 0.1 k/uL (0-0.7); Eosinophils % (A) 2 %; HCT 40.5 % (39.0-53.0); HGB 14.2 gm/dL (13.0-17.5); Lymphocytes # (A) 2.2 k/uL (1.0-4.8); Lymphocytes % (A) 27 %; MCH 27.1 pg (25.0-35.0); MCHC 35.1 g/dL (31.0-37.0); MCV 77.3 fL (80.0-100.0); Mean Platelet Volume 7.3; Monocytes # (A) 0.5 k/uL (0-1.0); Monocytes % (A) 7 %; Neutrophils # (A) 5.1 k/uL (1.3-7.7); Neutrophils % (A) 62 %; Platelet Count 224 k/uL (150-450); RBC 5.24 m/uL (4.30-5.90); RDW 13.3 % (11.5-15.5); WBC 8.3 k/uL (3.8-10.6)
[2018-04-02 11:37] LABS: ALT 41 U/L (21-72); AST 22 U/L (17-59); Albumin 4.6 g/dL (3.5-5.0); Alkaline Phosphatase 79 U/L (38-126); Anion Gap 15 mmol/L; Blood Urea Nitrogen 11 mg/dL (9-20); Calcium 9.4 mg/dL (8.4-10.2); Carbon Dioxide 22 mmol/L (22-30); Chloride 99 mmol/L (98-107); Glucose 210 mg/dL (74-99); Potassium 4.3 mmol/L (3.5-5.1); Sodium 136 mmol/L (137-145); Total Bilirubin 0.6 mg/dL (0.2-1.3); Total Protein 6.6 g/dL (6.3-8.2)
[2018-04-02 11:41] LABS: INR 1.1 (<1.2); Partial Thromboplastin Time 23.9 sec (22.0-30.0); Prothrombin Time 10.3 sec (9.0-12.0)
--- NOTE | 2018-04-02 11:49 | XR ---
EXAMINATION TYPE: XR chest 2V DATE OF EXAM: 04/02/2018 COMPARISON: 04/15/2017 TECHNIQUE: PA and lateral views submitted. HISTORY: Pain FINDINGS: The lungs are clear and there is no pneumothorax, pleural effusion, or focal pneumonia. Hyperinflat ion suggests COPD. Hypertrophic and degenerative change of the spine. Previous surgery involving the vertebral column. No overt failure. No pleural effusion or pneumothorax. Asymmetric density in the ri ght apex appears stable from 2017 likely related to anterior margin the first rib. IMPRESSION: 1. No acute process. Correlate for COPD
[2018-04-02 11:54] LABS: Creatine Kinase 111 U/L (55-170)
[2018-04-02 12:07] LABS: Creatine Kinase MB 1.8 ng/mL (0.0-2.4); Troponin I <0.012 ng/mL (0.000-0.034)
--- NOTE | 2018-04-02 12:47 | CT ---
EXAMINATION TYPE: CT angio thoracic/abd aorta DATE OF EXAM: 04/02/2018 COMPARISON: NONE HISTORY: Back pain, pt feels a lump on anterior chest, marked with BB on scan CT DLP: 1722.9 mGycm CONTRAST: CTA thoracic and abdominal aorta with 3-D reconstruction is performed and with IV Contrast, patient i njected with 100 mL of Isovue 370. Contrast CTA of the thoracic and abdominal aorta was performed from the lung apex through the base of the pelvis. 3-D reconstruction imaging obtained at a separate workstation. CT Chest: At the site of clinical concern right chest wall there is no evidence for distinct mass. THORACIC AORTA: There is no evidence for aneurysm. No dissection or mediastinal hematoma. Mild ath eromatous changes are seen. LUNGS: The lungs are clear and free of infiltrate or atelectasis. No pulmonary nodule or mass is det ected. No pleural effusion or CT evidence of interstitial lung disease. MEDIASTINUM: The heart is not enlarged. No evidence for mediastinal mass or adenopathy. Small slidin g-type hiatal hernia. HILAR STRUCTURES: No evidence for mass. No hilar adenopathy is appreciated. OTHER: No significant abnormality. CONTRAST CT ABDOMEN AND PELVIS ABDOMINAL AORTA: No evidence for abdominal aortic aneurysm. No dissection. Iliac vessels are symmet santos and patent. LIVER/GB- No significant abnormality is seen. PANCREAS- No significant abnormality is seen. SPLEEN- No significant abnormality is seen. ADRENALS- No significant abnormality is seen. KIDNEYS/BLADDER- No significant abnormality is seen. BOWEL- No Significant abnormality GENITAL ORGANS: No gross abnormality seen. LYMPH NODES- No greater than 1cm abdominal or pelvic lymph nodes areappreciated. OSSEOUS STRUCTURES- No significant abnormality is seen. OTHER- No significant abnormality is seen. IMPRESSION- 1. No evidence for aortic abnormality at this time. 2. Sliding-type hiatal hernia. 3. No distinct chest wall abnormality at this time. 4. Mild gynecomastia.
[2018-04-02] MEDS ORDERED: HYDROcodone/APAP 10-325MG 1 EACH TAB PO ONE (12:57)
[2018-04-02 13:14] VITALS: BP 137/87; PULSE 87; TEMP 98.4
== END 2018-04-02 13:13 | disposition home or self-care (01) ==
LOC: EC 09:41
DX: M94.0 Chondrocostal junction syndrome [Tietze] (principal); M54.9 Dorsalgia, unspecified; R05 Cough; I25.10 Atherosclerotic heart disease of native coronary artery without angina pectoris; E11.9 Type 2 diabetes mellitus without complications; K21.9 Gastro-esophageal reflux disease without esophagitis; E78.5 Hyperlipidemia, unspecified; I10 Essential (primary) hypertension; I25.2 Old myocardial infarction; F41.9 Anxiety disorder, unspecified; Z87.891 Personal history of nicotine dependence; Z79.82 Long term (current) use of aspirin; Z79.84 Long term (current) use of oral hypoglycemic drugs; Z79.899 Other long term (current) drug therapy; Z88.0 Allergy status to penicillin; Z98.890 Other specified postprocedural states; Z95.5 Presence of coronary angioplasty implant and graft
CPT/HCPCS: 36415; 80053; 82550; 82553; 83735; 84484; 85025; 85610; 85730; 71046; 75635; 71275; 99285; 96374; J2270; Q9967

== ENCOUNTER → 2023-01-03 | Outpatient (CLI) | payer MEDICARE ==
--- NOTE | 2023-01-03 14:44 | XR ---
EXAMINATION TYPE: XR Hip RT and AP Pelvis DATE OF EXAM: 01/03/2023 COMPARISON: NONE HISTORY: Pain TECHNIQUE: A single AP view of the pelvis is obtained. Two views of the right hip are obtained. FINDINGS: There is postsurgical change involving the vertebral column. Portions of the catheter seen within the pelvis correlate clinically. There is bilateral severe arthropathy of the SI joints symme tric. Calcifications likely vascular. Hypertrophic change along the lateral margin of the acetabulum greater on the right. IMPRESSION: 1. Severe bilateral hip arthropathy correlate femoral acetabular joint.
== END | disposition home or self-care (01) ==
LOC: RADXRMAIN 14:15
PROVIDERS: ATTEND Family Medicine
DX: M16.0 Bilateral primary osteoarthritis of hip (principal)
CPT/HCPCS: 73502